=== PATIENT | female | born 1950 | race Caucasian/White ===

== ENCOUNTER 2017-05-26 06:04 | Day surgery (SDC) | payer OTHER ==
[~2017-05-26] VITALS: Ht 157.5 cm; Wt 68.9 kg
[~2017-05-26 06:04] MED LIST: ERYT333T76 PO
[2017-05-26] MEDS ORDERED: METOCLOPRAMIDE HCL 10 MG/2 ML VIAL IVP ONE (06:05)
[2017-05-26] MEDS ORDERED: SEVOFLURANE 15 MIN GAS INH ONE (06:05)
[2017-05-26] MEDS ORDERED: fentaNYL CITRATE/PF 100 MCG/2 ML AMP IVP ONE (06:05)
[2017-05-26] MEDS ORDERED: PROPOFOL 200MG/ 20ML VIAL (DIPRIVAN) IV ONE (06:05)
[2017-05-26] MEDS ORDERED: MIDAZOLAM HCL 5 MG/ML VIAL (VERSED) IV ONE (06:05)
[2017-05-26] MEDS ORDERED: ROCURONIUM BROMIDE 10 MG/ML (ZEMURON) IV ONE (06:05)
[2017-05-26] MEDS ORDERED: LR 1,000 ML IV.SOLN IV ONE (06:05)
[2017-05-26] MEDS ORDERED: DEXAMETHASONE SOD PHOSPHATE 4 MG/ML VIAL IVP ONE (06:05)
[2017-05-26] MEDS ORDERED: KETOROLAC TROMETHAMINE 30 MG VIAL IVP ONE (06:05)
[2017-05-26] MEDS ORDERED: CLINDAMYCIN PHOS 600 MG/ D5W 50 ML PREMIX IV ONE (07:00)
[2017-05-26] MEDS ORDERED: LEVOFLOXACIN 500 MG/D5W 100 ML IV ONE (07:00)
[2017-05-26] MEDS ORDERED: IOHEXOL 50 ML IV ONE (07:23)
[2017-05-26] MEDS ORDERED: LR 1,000 ML IV ONE (08:27)
[2017-05-26] MEDS ORDERED: DIPHENHYDRAMINE INJ 50 MG/ML VIAL IVP PRN (08:30)
[2017-05-26] MEDS ORDERED: NALBUPHINE HCL 10 MG/ML AMP IVP PRN (08:30)
[2017-05-26] MEDS ORDERED: NALOXONE HCL 0.4 MG/ML AMP (NARCAN) IVP PRN (08:30)
[2017-05-26] MEDS ORDERED: ePHEDrine sulfate 50 MG/ML VIAL IVP PRN (08:30)
[2017-05-26] MEDS ORDERED: ONDANSETRON HCL 4 MG/2 ML VIAL IVP PRN ×2 (08:30)
[2017-05-26] MEDS ORDERED: D5/0.45 NS 1,000 ML IV SCH (09:14)
[2017-05-26] MEDS ORDERED: ACETAMINOPHEN/CODEINE 300 MG-30 MG TABLET PO PRN (09:15)
[2017-05-26] MEDS ORDERED: HYDROmorphone 1 MG INJ. 1 MG/ML AMPUL IVP PRN (09:15)
[2017-05-26] MEDS: fentaNYL CITRATE/PF 100 MCG/2 ML AMP IVP PRN ×2 (09:35→09:41)
[2017-05-26] MEDS ORDERED: fentaNYL CITRATE/PF 100 MCG/2 ML AMP ONE (09:45)
[2017-05-26 10:44] VITALS: BP_SYST 131
== END 2017-05-26 11:45 | disposition home or self-care (01) ==
LOC: SDS 06:04 → SMU 06:05 → SDS 11:45
PROVIDERS: ATTEND Colon & Rectal Surgery
DX: K80.10 Calculus of gallbladder with chronic cholecystitis without obstruction (principal); F41.9 Anxiety disorder, unspecified; I10 Essential (primary) hypertension; F13.21 Sedative, hypnotic or anxiolytic dependence, in remission; Z88.0 Allergy status to penicillin; Z79.899 Other long term (current) drug therapy
CPT/HCPCS: 47563; 76000; 88304; C1727; C1758; J1100; J1885; J2250; J2704; J2765; J3010; J3490; J7120; Q9967; J1956

== ENCOUNTER 2022-03-16 18:44 | Emergency (ER) | payer OTHER ==
[~2022-03-16] VITALS: Ht 157.5 cm; Wt 71.2 kg
[~2022-03-16 18:44] MED LIST changes: -ERYT333T76 PO; +ERYT333T78 PO
[2022-03-16 19:50] VITALS: BP_SYST 158
--- NOTE | 2022-03-16 19:54 | NUR ---
PATIENT STATES SHE HAS HAD PALPITATIONS TODAY AND WORSENING TODAY. CHEST PAIN WITH PALPITATIONS, ON AND OFF. STATES MIDDLE OF CHEST, HISTORY OF HERNIA.
[2022-03-16 20:58] LABS: BASOPHILS # (AUTO) 0.1 K/uL (0.0-0.2); BASOPHILS % (AUTO) 0.8 % (0.0-2.0); EOSINOPHILS # (AUTO) 0.2 K/uL (0.0-0.4); EOSINOPHILS % (AUTO) 2.6 % (0.0-4.0); HEMATOCRIT 40.4 % (36-48); HEMOGLOBIN 13.9 g/dL (12.0-16.0); LYMPHOCYTES # (AUTO) 2.8 K/uL (1.0-5.5); LYMPHOCYTES % (AUTO) 33.3 % (20.5-51.5); MEAN CORPUSCULAR HEMOGLOBIN 31 pg (27-31); MEAN CORPUSCULAR HGB CONC 34 % (32-36); MEAN CORPUSCULAR VOLUME 89 fL (79.0-98.0); MONOCYTES # (AUTO) 0.5 K/uL (0.0-1.0); MONOCYTES % (AUTO) 6.2 % (1.7-9.3); NEUTROPHILS # (AUTO) 4.9 K/uL (1.8-7.7); NEUTROPHILS % (AUTO) 57.1 % (40.0-70.0); PLATELET COUNT (AUTO) 270 K/uL (130-430); RED BLOOD CELL COUNT(AUTO) 4.55 MIL/uL (4.2-6.2); WHITE BLOOD COUNT (AUTO) 8.5 K/uL (4.8-10.8)
--- NOTE | 2022-03-16 21:00 | NUR ---
[facility] RN PT BIB AMB WITH [employer]. C/O OFF/ON PALPATATIONS X1 DAY. "FEELS LIKE A THUMP OR PUNCH TO MY CHEST". DENIES PAIN OR SOB AT THIS TIME. CONTINUED MONITORING
[2022-03-16 21:05] LABS: ANION GAP 9 (5-15); CALCIUM 9.8 mg/dL (8.4-11.0); CHLORIDE 98 mmol/L (98-107); CREATININE 0.97 mg/dL (0.55-1.30); GLUCOSE 98 mg/dL (70-99); SODIUM SERUM 136 mmol/L (136-145); UREA NITROGEN, BLOOD 24 mg/dL (8-21)
[2022-03-16 21:09] LABS: INR 1.1 (0.8-1.2); PROTHROMBIN TIME 11.3 SECS (9.5-12.5)
[2022-03-16 21:13] LABS: ALANINE AMINOTRANSFERASE 22 U/L (12-78); ASPARTATE AMINOTRANSFERASE 15 U/L (10-37); TOTAL BILIRUBIN 0.7 mg/dL (0.0-1.0)
[2022-03-16 21:45] LABS: CHOLESTEROL 273 mg/dL (<200); HDL CHOLESTEROL 66 mg/dL (>55); LDL CHOLESTEROL 173 mg/dL (<100); TRIGLYCERIDES 126 mg/dL (30-150)
[2022-03-16 23:26] VITALS: BP_SYST 138
--- NOTE | 2022-03-16 23:28 | NUR ---
PT WANTS TO GO HOME, AMA SIGNED. DR. MALHOTRA MADE AWARE. PT ADVISED OF ALL RISKS AND EVEN . PT VERBALIZED UNDERSTANDING. VSS NO C/O OF DISCOMFORT AT THIS TIME. TO LOBBY AMB WITH COPY OF AMA FORM IN HAND
[2022-03-16] MEDS ORDERED: LORazepam 1 MG TABLET PO ONE (23:30)
== END 2022-03-16 23:26 | disposition left against medical advice (07) ==
LOC: SED 18:44
DX: R07.89 Other chest pain (principal); R00.2 Palpitations; Z88.0 Allergy status to penicillin; Z79.899 Other long term (current) drug therapy
CPT/HCPCS: 36415; 80053; 80061; 82550; 83880; 84484; 84703; 85025; 85379; 85610-TC; 85730-TC; 93005; 99284